=== PATIENT | male | born 1965 | race Caucasian/White ===

== ENCOUNTER → 2018-07-28 08:36 | Outpatient (CLI) | payer SELFPAY ==
--- NOTE | 2018-07-28 08:37 | RAD_ITS ---
STUDY: X-RAY - RIGHT SHOULDER REASON FOR EXAM: Pain. TECHNIQUE: 3 view(s) of the shoulder. COMPARISON: None. FINDINGS: Normal glenohumeral articulation. Normal acromioclavicular joint. Normal acromion. Normal humeral head and visualized proximal humerus. The soft tissue structures are unremarkable. Normal visualized pulmonary apex. RAD/Shoulder min 2 Views IMPRESSION: Normal x-ray examination of the right shoulder. Electronically Signed: Nelson Kern MD at 11:51 EDT Tel , Service support ,
== END ==
PROVIDERS: Family Provider Internal Medicine; PCP Internal Medicine; Referring Provider Orthopaedic Surgery; Visit Provider Orthopaedic Surgery
DX: M25.511 Pain in right shoulder (principal)
CPT/HCPCS: 73030

== ENCOUNTER → 2018-12-09 | Outpatient (CLI) | payer SELFPAY ==
--- NOTE | 2018-12-09 13:38 | MRI_ITS ---
STUDY: MRI RIGHT SHOULDER REASON FOR EXAM: Right shoulder pain for 6 months. TECHNIQUE: Standardized fat and water weighted pulse sequences were obtained in all 3 orthogonal planes. COMPARISON: Radiographs 07/28/2018. FINDINGS: There is mild supraspinatus tendinosis and a small non retracted full-thickness tear of the distal anterior supraspinatus tendon (proton density axial image 9; T2 coronal image 14) measuring approximately 0.3 cm in length and 0.4 cm in width. Normal infraspinatus tendon. Normal subscapularis tendon. Normal teres minor tendon. Normal supraspinatus muscle. Normal infraspinatus muscle. Normal subscapularis muscle. Normal teres minor muscle. There is a small glenohumeral joint effusion with fluid extending into the bicipital tendon sheath. There is an intra-articular body in the subscapularis recess (T2 coronal image 18) measuring 0.9 cm in transverse dimension. There is mild cystic change of the greater tuberosity. Normal biceps labral complex. Normal intracapsular long biceps tendon. Normal labrum. Normal capsulo- ligamentous complex. There is mild acromioclavicular arthrosis without substantial undersurface osteophytes (T2 sagittal image 10). There is a Type II morphology (curved), with a neutral orientation. There is a small volume of subacromial-subdeltoid bursal fluid. Normal visualized coracohumeral and coracoacromial ligaments. Normal deltoid muscle. Normal trapezius muscle. MRI/Upper Ext Joint Only(Routine) IMPRESSION: Small full-thickness tear and mild tendinosis of the supraspinatus tendon. Mild acromioclavicular arthrosis. Intra-articular body in the subscapularis recess. Glenohumeral joint fluid communicating with the subacromial-subdeltoid bursa. Electronically Signed: Nelson Kern MD at 14:58 EDT Tel , Service support ,
== END | disposition home or self-care (01) ==
LOC: MRI 13:33
PROVIDERS: Family Provider Internal Medicine; PCP Internal Medicine; Referring Provider Orthopaedic Surgery; Visit Provider Orthopaedic Surgery
DX: S49.91XA Unspecified injury of right shoulder and upper arm, initial encounter (principal); R29.898 Other symptoms and signs involving the musculoskeletal system
CPT/HCPCS: 73221